=== PATIENT | female | born 1965 | race African-American/Black ===

== ENCOUNTER 2017-06-29 16:43 | Emergency (ER) | payer MEDICAID ==
[~2017-06-29] VITALS: Ht 172.7 cm; Wt 87.0 kg
[2017-06-29 17:19] VITALS: BP 172/91
[2017-06-29] MEDS ORDERED: ACETAMINOPHEN 325MG TABLET PO ONE (20:30)
== END 2017-06-29 22:06 | disposition home or self-care (01) ==
LOC: ER 16:43
DX: J02.8 Acute pharyngitis due to other specified organisms (principal); B97.89 Other viral agents as the cause of diseases classified elsewhere; I10 Essential (primary) hypertension; F17.200 Nicotine dependence, unspecified, uncomplicated; Z88.5 Allergy status to narcotic agent
CPT/HCPCS: 87070; 87430; 99284; Z7610

== ENCOUNTER 2021-02-06 15:19 | Emergency (ER) | payer MEDICAID ==
[~2021-02-06] VITALS: Ht 167.6 cm; Wt 103.0 kg
[2021-02-06 15:35] VITALS: BP 145/89
[2021-02-06] MEDS ORDERED: KETOROLAC 60MG/2ML VIAL IM ONE (15:45)
[2021-02-06] MEDS ORDERED: DEXAMETHASONE 4MG TABLET PO ONE (16:00)
[2021-02-06] MEDS ORDERED: IBUP-2028 MT (16:34)
[2021-02-06] MEDS ORDERED: PENI500T MT (18:23)
== END 2021-02-06 18:37 | disposition home or self-care (01) ==
LOC: ER 15:19
DX: J03.90 Acute tonsillitis, unspecified (principal); I10 Essential (primary) hypertension; E66.9 Obesity, unspecified; Z68.36 Body mass index [BMI] 36.0-36.9, adult; Z88.5 Allergy status to narcotic agent
CPT/HCPCS: 81025; 87426; 87430; 96372; 99283; J1885; J8540

== ENCOUNTER 2021-07-20 11:54 | Emergency (ER) | payer MEDICAID ==
[~2021-07-20] VITALS: Ht 167.6 cm; Wt 89.0 kg
[~2021-07-20 11:54] MED LIST: IBUP-2028 MT; PENI500T MT
[2021-07-20] MEDS ORDERED: LIDO700A30 TP (17:13)
[2021-07-20] MEDS ORDERED: CYCL10TA21 MT (17:13)
[2021-07-20] MEDS ORDERED: NAP5EC MT (17:13)
[2021-07-20] MEDS ORDERED: KETOROLAC 60MG/2ML VIAL IM ONE (17:15)
[2021-07-20] MEDS ORDERED: LIDOCAINE 5% PATCH TOP SCH (17:15)
[2021-07-20] MEDS ORDERED: CYCLOBENZAPRINE 10MG TABLET PO ONE (17:15)
[2021-07-20] MEDS ORDERED: CYCLOBENZAPRINE 10MG TABLET PO NR (17:30)
[2021-07-20] MEDS ORDERED: LIDOCAINE 5% PATCH TOP NR (17:30)
[2021-07-20 17:37] VITALS: BP 129/78
== END 2021-07-20 17:36 | disposition home or self-care (01) ==
LOC: ER 12:24
DX: M54.16 Radiculopathy, lumbar region (principal); M51.36 Other intervertebral disc degeneration, lumbar region; I10 Essential (primary) hypertension; Z79.899 Other long term (current) drug therapy; Z88.5 Allergy status to narcotic agent
CPT/HCPCS: 96372; 99283; J1885

== ENCOUNTER 2021-10-07 11:58 | Emergency (ER) | payer MEDICAID ==
[~2021-10-07] VITALS: Ht 167.6 cm; Wt 91.0 kg
[~2021-10-07 11:58] MED LIST changes: +CYCL10TA21 MT; +LIDO700A30 TP; +NAP5EC MT
[2021-10-07] MEDS ORDERED: IPRATROPIUM BROMIDE (0.02%) 0.5MG/2.5ML NEB HHN STA (13:06)
[2021-10-07] MEDS ORDERED: ALBUTEROL (0.083%) 2.5MG/3ML NEB HHN STA (13:06)
[2021-10-07 13:12] VITALS: BP 115/67
[2021-10-07 13:12] LABS: BASOPHILS % 0.8 % (0.0-2.0); EOSINOPHILS % 1.5 % (0.0-5.0); HEMATOCRIT. 43.4 % (36.0-48.0); HEMOGLOBIN. 14.4 g/dL (12.0-16.0); MEAN CORPUSCULAR HEMOGLOBIN 29.7 pg (28.0-32.0); MEAN CORPUSCULAR VOLUME 89.7 fL (81.0-99.0); MEAN PLATELET VOLUME 8.8 fl (7.4-10.4); MONOCYTES % 10.4 % (2.0-8.0); NEUTROPHILS % 30.3 % (40.0-76.0); PLATELET 259 x1000/uL (130-400); RED BLOOD CELL COUNT 4.84 mill/uL (4.2-5.4)
[2021-10-07 13:16] LABS: CHLORIDE 100 mEq/L (98-107)
[2021-10-07] MEDS ORDERED: ALBU6.7H9 INH (16:58)
== END 2021-10-07 17:25 | disposition home or self-care (01) ==
LOC: ER 11:58
DX: J40 Bronchitis, not specified as acute or chronic (principal)
CPT/HCPCS: 36415; 71045; 80053; 83880; 84484; 85025; 94640; 99284; Z7610

== ENCOUNTER 2024-11-04 09:52 | Emergency (ER) | payer MEDICAID ==
[~2024-11-04] VITALS: Ht 167.6 cm; Wt 95.0 kg
[~2024-11-04 09:52] MED LIST changes: +ALBU6.7H3 INH; -NAP5EC MT; +NAPR-1495 MT
[2024-11-04 10:14] VITALS: TEMP 36.9; O2SAT 99
[2024-11-04 11:52] LABS: CLARITY URINE CLOUDY (CLEAR); COLOR URINE DARK YELLOW (YELLOW); GLUCOSE URINE NEGATIVE (NEGATIVE); KETONES URINE NEGATIVE (NEGATIVE); LEUKOCYTE ESTERASE URINE NEGATIVE (NEGATIVE); NITRITE URINE NEGATIVE (NEGATIVE); OCCULT BLOOD URINE NEGATIVE (NEGATIVE); PH URINE 6.0 (4.5-8.0); PROTEIN URINE TRACE (NEGATIVE); SPECIFIC GRAVITY URINE 1.024 (1.005-1.030); UROBILINOGEN URINE 0.2 E.U./dL (0.2-1.0)
[2024-11-04 12:08] LABS: BACTERIA URINE 1+; RBC URINE 0-2 /hpf (0-2); SQUAMOUS EPITHELIAL CELL URINE 3+ /lpf (RARE/1+); YEAST URINE NONE SEEN
[2024-11-04] MEDS: DEXAMETHASONE 4MG TABLET PO ONE (12:30)
[2024-11-04] MEDS: KETOROLAC 30MG/ML VIAL IM ONE (12:39)
[2024-11-04] MEDS ORDERED: LIDO-53 TP (13:44)
[2024-11-04] MEDS ORDERED: METH4TAB95 MT (13:44)
[2024-11-04] MEDS ORDERED: NAPR-681 MT (13:44)
[2024-11-04 14:09] VITALS: BP 131/76; PULSE 77; RESP 16; O2SAT 100
== END 2024-11-04 14:10 | disposition home or self-care (01) ==
LOC: ER 09:52
DX: M54.9 Dorsalgia, unspecified (principal); Z79.899 Other long term (current) drug therapy; Z88.5 Allergy status to narcotic agent
CPT/HCPCS: 99285; 74176; 81003; 81025; 96372; J1885; J8540